=== PATIENT | male | born 1980 ===

== ENCOUNTER 2016-10-11 12:26 | Emergency (ER) | payer BC ==
[2016-10-11 12:48] VITALS: BP 142/93
--- NOTE | 2016-10-11 13:21 | UC ---
Throat Pain/Nasal Estiven HPI - HPI Summary HPI Summary: worsening sore throat over the past 4 days - History of Current Complaint Chief Complaint: UCRespiratory Stated Complaint: SORE THROAT Time Seen by Provider: 10/11/16 13:15 Hx Obtained From: Patient Onset/Duration: Gradual Onset, Lasting Days - 4, Still Present Severity: Moderate Pain Intensity: 6 Pain Scale Used: 0-10 Numeric Cough: None Associated Signs & Symptoms: Positive: Negative - Allergies/Home Medications Allergies/Adverse Reactions: Allergies Allergy/AdvReac Type Severity Reaction Status Date / Time No Known Allergies Allergy Verified 10/11/16 12:47 Home Medications: Home Medications NK [No Home Medications Reported] 10/11/16 [History Confirmed 10/11/16] PMH/Surg Hx/FS Hx/Imm Hx Previously Healthy: Yes - Surgical History Surgical History: Yes Surgery Procedure, Year, and Place: knee - Family History Known Family History: Positive: None - Social History Occupation: Employed Full-time Lives: With Family Alcohol Use: Weekly Substance Use Type: None Smoking Status (MU): Never Smoked Tobacco Review of Systems Constitutional: Chills, Fatigue Skin: Negative Eyes: Negative ENT: Sore Throat Respiratory: Negative Cardiovascular: Negative Gastrointestinal: Negative Genitourinary: Negative Motor: Negative Neurovascular: Negative Musculoskeletal: Negative Neurological: Negative Psychological: Negative All Other Systems Reviewed And Are Negative: Yes Physical Exam Triage Information Reviewed: Yes Appearance: Well-Appearing, No Pain Distress, Well-Nourished Vital Signs: Initial Vital Signs Temp 98.1 F 10/11/16 12:45 Pulse 79 10/11/16 12:45 Resp 16 10/11/16 12:45 BP 142/93 10/11/16 12:45 Pulse Ox 100 10/11/16 12:45 Vital Signs Reviewed: Yes Eye Exam: Normal Eyes: Positive: Conjunctiva Clear ENT Exam: Normal ENT: Positive: Normal ENT inspection, Hearing grossly normal, Pharyngeal erythema, TMs normal. Negative: Nasal congestion, Nasal drainage, Trismus, Muffled/hoarse voice Dental Exam: Normal Neck exam: Normal Neck: Positive: Supple, Nontender, No Lymphadenopathy Respiratory Exam: Normal Respiratory: Positive: Chest non-tender, Lungs clear, Normal breath sounds, No respiratory distress, No accessory muscle use Cardiovascular Exam: Normal Cardiovascular: Positive: RRR, No Murmur, Pulses Normal, Brisk Capillary Refill Musculoskeletal Exam: Normal Musculoskeletal: Positive: Strength Intact, ROM Intact, No Edema Neurological Exam: Normal Neurological: Positive: Alert, Muscle Tone Normal Psychological Exam: Normal Skin Exam: Normal Diagnostics - Laboratory Diagnostic Studies Completed/Ordered: RST (-) Throat Pain/Nasal Course/Dx - Course Assessment/Plan: Phenol spray, tylenol ibuprofen increase fluids, follow elevated blood pressure with PCP in next 10-14 days - Differential Dx/Diagnosis Differential Diagnosis/HQI/PQRI: Laryngitis, Peritonsillar Abscess, Pharyngitis , URI Provider Diagnoses: Pharyngitis Discharge - Discharge Plan Condition: Stable Disposition: HOME Patient Education Materials: Ibuprofen (By mouth), Phenol (By mouth), Pharyngitis (ED), Hypertension (ED) Referrals: [facility] [Outside] - 2 Weeks Additional Instructions: Your Blood Pressure was a little high today we recommend getting it rechecked in the next 10-14 days----
== END 2016-10-11 13:47 | disposition home or self-care (01) ==
LOC: UCEAST 12:26
DX: J02.9 Acute pharyngitis, unspecified (principal)
CPT/HCPCS: 87651; 99211; G0463